=== PATIENT | male | born 1980 ===

== ENCOUNTER 2017-02-02 08:55 | Day surgery (SDC) | payer OTHER ==
[~2017-02-02 08:55] MED LIST: POLYMYXIN B SULFATE 500,000 UNITS, BACITRACIN 50,000 UNITS, NORMAL SALINE 20 ML MC ONE
[2017-02-02] MEDS ORDERED: PROPOFOL 200 MG/20 ML BOTTLE IV ONE (08:56)
[2017-02-02] MEDS ORDERED: IV LACTATED RINGERS SOLUTION 1,000 ML BAG IV ONE (08:56)
[2017-02-02] MEDS ORDERED: KETOROLAC TROMETHAMINE 30 MG INJ IM ONE (08:56)
[2017-02-02] MEDS ORDERED: DEXAMETHASONE SOD PHOSPHATE 4 MG INJ IV ONE (08:56)
[2017-02-02] MEDS ORDERED: ONDANSETRON 4 MG/2 ML VIAL IV ONE (08:56)
[2017-02-02] MEDS ORDERED: CEFAZOLIN 1 G VIAL MC ONE (08:56)
[2017-02-02] MEDS ORDERED: BUPIVACAINE PF 0.5% 30 ML VIAL ONE (10:29)
== END 2017-02-02 14:22 | disposition home or self-care (01) ==
LOC: DS 08:55
PROVIDERS: ATTEND Orthopaedic Surgery
DX: R22.9 Localized swelling, mass and lump, unspecified (principal)
CPT/HCPCS: 11421; A4649; A4663; J0690; J1100; J1885; J2405; J3490 ×4; J7120 ×2